=== PATIENT | male | born 1950 | race Caucasian/White ===

== ENCOUNTER 2019-01-08 09:20 | Inpatient (IN) | payer MEDICARE, BC ==
[~2019-01-08] VITALS: Ht 177.8 cm; Wt 95.4 kg
[2019-01-08] MEDS ORDERED: SODIUM CHLORIDE 0.9% 1,000 ML IV SCH (11:00)
[2019-01-08 11:26] LABS: BASOPHILS # (AUTO) 0.03 x10^3/uL (0-0.1); BASOPHILS % (AUTO) 0 % (0-1); EOSINOPHILS # (AUTO) 0.21 x10^3/uL (0-0.4); EOSINOPHILS % (AUTO) 3 % (1-7); LYMPHOCYTES # (AUTO) 1.41 x10^3/uL (1-3.4); LYMPHOCYTES % (AUTO) 17 % (22-44); MD NO; MEAN CORPUSCULAR HEMOGLOBIN 23.6 pg (27.5-34.5); MEAN CORPUSCULAR HGB CONC 31.2 g/dL (33.2-36.2); MEAN CORPUSCULAR VOLUME 75.6 fL (81-97); MEAN PLATELET VOLUME 9.1 fL (7.4-10.4); MONOCYTES # (AUTO) 0.75 x10^3/uL (0.2-0.8); MONOCYTES % (AUTO) 9 % (2-9); NEUTROPHILS # (AUTO) 5.86 x10^3/uL (1.8-6.8); NEUTROPHILS % (AUTO) 71 % (42-75); PLATELET COUNT 275 x10^3/uL (130-400); RED BLOOD COUNT 5.45 x10^6/uL (4.38-5.82); RED CELL DISTRIBUTION WIDTH 19.1 % (9.4-14.8)
[2019-01-08 11:27] VITALS: BP 141/93
[2019-01-08 11:36] LABS: ANION GAP 6 mmol/L (5-15); CALCIUM 8.5 mg/dL (8.5-10.1); CHLORIDE 112 mmol/L (98-107); CREATININE 1.28 mg/dL (0.7-1.3)
[2019-01-08] MEDS ORDERED: PRAS10TA4 PO (11:37)
[2019-01-08] MEDS ORDERED: METO25TA35 PO (11:38)
[2019-01-08] MEDS ORDERED: ASPI-515 PO (11:39)
[2019-01-08] MEDS ORDERED: ALLO300T PO (11:39)
[2019-01-08] MEDS ORDERED: ATOR-2 PO (11:40)
[2019-01-08] MEDS ORDERED: DICL-249 PO (11:41)
[2019-01-08] MEDS ORDERED: RANI150T4 PO (11:42)
[2019-01-08] MEDS ORDERED: TEST200V21 IM (11:43)
[2019-01-08] MEDS ORDERED: LIDOCAINE-MPF 1%, 5ML ONE (13:04)
[2019-01-08] MEDS ORDERED: HEPARIN 1,000 UNITS/ML, 10ML ONE (13:04)
[2019-01-08] MEDS ORDERED: VERAPAMIL 2.5 MG/ML, 2ML ONE (13:04)
[2019-01-08] MEDS ORDERED: FENTANYL PF 100 MCG/2ML ONE (13:04)
[2019-01-08] MEDS ORDERED: MIDAZOLAM 1 MG/ML, 2ML ONE (13:04)
[2019-01-08] MEDS ORDERED: BIVALIRUDIN 250 MG ONE (13:44)
[2019-01-08] MEDS ORDERED: INSULIN LISPRO 100 UNITS/ML, PEN SQ-INSULIN SCH (16:00)
[2019-01-08] MEDS ORDERED: ACETAMINOPHEN 500 MG TABLET PO PRN (16:00)
[2019-01-08 17:35] LABS: BASOPHILS # (AUTO) 0.03 x10^3/uL (0-0.1); BASOPHILS % (AUTO) 0 % (0-1); EOSINOPHILS # (AUTO) 0.29 x10^3/uL (0-0.4); EOSINOPHILS % (AUTO) 4 % (1-7); LYMPHOCYTES # (AUTO) 1.77 x10^3/uL (1-3.4); LYMPHOCYTES % (AUTO) 23 % (22-44); MD NO; MEAN CORPUSCULAR HGB CONC 31.3 g/dL (33.2-36.2); MEAN CORPUSCULAR VOLUME 76.8 fL (81-97); MEAN PLATELET VOLUME 9.5 fL (7.4-10.4); MONOCYTES # (AUTO) 0.65 x10^3/uL (0.2-0.8); MONOCYTES % (AUTO) 9 % (2-9); NEUTROPHILS # (AUTO) 4.83 x10^3/uL (1.8-6.8); NEUTROPHILS % (AUTO) 64 % (42-75); PLATELET COUNT 257 x10^3/uL (130-400); RED BLOOD COUNT 5.19 x10^6/uL (4.38-5.82)
[2019-01-08 17:45] LABS: INTERNATIONAL NORMALIZED RATIO 1.06 (0.93-1.1); PROTHROMBIN TIME 11.1 Seconds (9.6-11.5)
[2019-01-08 17:47] LABS: ALANINE AMINOTRANSFERASE 57 U/L (12-78); ALBUMIN 3.3 g/dL (3.4-5.0); ANION GAP 4 mmol/L (5-15); CHLORIDE 113 mmol/L (98-107); CREATININE 1.19 mg/dL (0.7-1.3)
[2019-01-08 17:49] LABS: ALKALINE PHOSPHATASE 118 U/L (45-117); BILIRUBIN,TOTAL 0.5 mg/dL (0.2-1.0)
[2019-01-08 17:57] LABS: HEMOGLOBIN A1C 6.2 % (4.2-6.3)
[2019-01-08] MEDS: METOPROLOL TARTRATE 25 MG TABLET PO SCH (18:24)
[2019-01-08 20:18] VITALS: BP 143/84
[2019-01-08] MEDS: ATORVASTATIN 80 MG TABLET PO SCH (21:15)
[2019-01-08] MEDS: SODIUM CHLORIDE FLUSH 10ML SYR IVF SCH (21:17)
[2019-01-08] MEDS: DIPHENHYDRAMINE 25 MG CAPSULE PO PRN (22:04)
[2019-01-09 04:34] VITALS: BP 138/85
[2019-01-09] MEDS: ASPIRIN 81 MG TABLET CHEW PO SCH (06:26)
[2019-01-09] MEDS ORDERED: HEPARIN 25,000 UNITS/500ML PMX 500 ML IV PRN (07:30)
[2019-01-09 07:50] VITALS: BP 150/89
[2019-01-09] MEDS ORDERED: HEPARIN GTT MC SCH (08:00)
[2019-01-09] MEDS ORDERED: HEPARIN 5,000 UNITS/ML, 1ML IV ONE (08:30)
[2019-01-09] MEDS ORDERED: ALLOPURINOL 100 MG TABLET PO SCH (09:00)
[2019-01-09] MEDS: HEPARIN 25,000 UNITS/500ML PMX 500 ML IV PRN (09:44)
[2019-01-09] MEDS: SODIUM CHLORIDE FLUSH 10ML SYR IVF SCH ×2 (09:47→23:17)
[2019-01-09] MEDS: METOPROLOL TARTRATE 25 MG TABLET PO SCH ×2 (09:52→16:49)
[2019-01-09 15:00] VITALS: BP 128/86
[2019-01-09] MEDS: HEPARIN 5,000 UNITS/ML, 1ML IV PRN ×2 (16:48→22:55)
[2019-01-09 20:34] VITALS: BP 113/71
[2019-01-09] MEDS: DIPHENHYDRAMINE 25 MG CAPSULE PO PRN (20:47)
[2019-01-09] MEDS: ATORVASTATIN 80 MG TABLET PO SCH (20:47)
[2019-01-09] MEDS: FAMOTIDINE 20 MG TABLET PO SCH (20:47)
[2019-01-10 02:43] VITALS: BP 123/79
[2019-01-10] MEDS: ASPIRIN 81 MG TABLET CHEW PO SCH (06:24)
[2019-01-10] MEDS: METOPROLOL TARTRATE 25 MG TABLET PO SCH ×2 (06:33→17:49)
[2019-01-10 07:48] VITALS: BP 129/78
[2019-01-10] MEDS: SODIUM CHLORIDE FLUSH 10ML SYR IVF SCH ×2 (08:25→21:17)
[2019-01-10] MEDS: FAMOTIDINE 20 MG TABLET PO SCH ×2 (08:26→21:16)
[2019-01-10] MEDS: ALLOPURINOL 100 MG TABLET PO SCH (08:27)
[2019-01-10] MEDS: HEPARIN 25,000 UNITS/500ML PMX 500 ML IV PRN (08:31)
[2019-01-10] MEDS ORDERED: FAMOTIDINE 20 MG TABLET PO SCH (09:00)
[2019-01-10] MEDS: HEPARIN 5,000 UNITS/ML, 1ML IV PRN (12:39)
[2019-01-10 14:00] VITALS: BP 143/76
[2019-01-10 21:13] VITALS: BP 114/72
[2019-01-10] MEDS: ATORVASTATIN 80 MG TABLET PO SCH (21:16)
[2019-01-10] MEDS: DIPHENHYDRAMINE 25 MG CAPSULE PO PRN (21:21)
[2019-01-11] MEDS: HEPARIN 25,000 UNITS/500ML PMX 500 ML IV PRN ×2 (01:39→18:45)
[2019-01-11] MEDS: HEPARIN 5,000 UNITS/ML, 1ML IV PRN (01:41)
[2019-01-11 02:00] VITALS: BP 124/79
[2019-01-11] MEDS: ASPIRIN 81 MG TABLET CHEW PO SCH (05:55)
[2019-01-11] MEDS: METOPROLOL TARTRATE 25 MG TABLET PO SCH ×2 (05:55→16:57)
[2019-01-11] MEDS: ALLOPURINOL 100 MG TABLET PO SCH (07:22)
[2019-01-11] MEDS: FAMOTIDINE 20 MG TABLET PO SCH ×2 (07:22→19:51)
[2019-01-11] MEDS: SODIUM CHLORIDE FLUSH 10ML SYR IVF SCH ×2 (07:22→19:52)
[2019-01-11 09:05] VITALS: BP 121/80
[2019-01-11 13:38] VITALS: BP 143/76
[2019-01-11 18:34] VITALS: BP 125/78
[2019-01-11] MEDS: ATORVASTATIN 80 MG TABLET PO SCH (19:51)
[2019-01-11] MEDS: DIPHENHYDRAMINE 25 MG CAPSULE PO PRN (21:06)
[2019-01-12 03:40] VITALS: BP 135/85
[2019-01-12] MEDS: METOPROLOL TARTRATE 25 MG TABLET PO SCH ×2 (05:06→17:12)
[2019-01-12] MEDS: ASPIRIN 81 MG TABLET CHEW PO SCH (05:07)
[2019-01-12 06:50] VITALS: BP 127/85
[2019-01-12] MEDS: FAMOTIDINE 20 MG TABLET PO SCH ×2 (09:12→20:04)
[2019-01-12] MEDS: ALLOPURINOL 100 MG TABLET PO SCH (09:13)
[2019-01-12] MEDS: SODIUM CHLORIDE FLUSH 10ML SYR IVF SCH ×2 (09:13→20:05)
[2019-01-12] MEDS: HEPARIN 25,000 UNITS/500ML PMX 500 ML IV PRN (12:11)
[2019-01-12 13:50] VITALS: BP 126/80
[2019-01-12 18:40] VITALS: BP 116/75
[2019-01-12] MEDS: ATORVASTATIN 80 MG TABLET PO SCH (20:04)
[2019-01-12] MEDS: DIPHENHYDRAMINE 25 MG CAPSULE PO PRN (21:09)
[2019-01-13 03:20] VITALS: BP 119/74
[2019-01-13] MEDS: HEPARIN 25,000 UNITS/500ML PMX 500 ML IV PRN ×2 (05:04→19:50)
[2019-01-13] MEDS: ASPIRIN 81 MG TABLET CHEW PO SCH (05:36)
[2019-01-13] MEDS: METOPROLOL TARTRATE 25 MG TABLET PO SCH ×2 (05:36→17:26)
[2019-01-13 07:35] VITALS: BP 125/90
[2019-01-13] MEDS: ALLOPURINOL 100 MG TABLET PO SCH (08:00)
[2019-01-13] MEDS: FAMOTIDINE 20 MG TABLET PO SCH ×2 (08:00→20:31)
[2019-01-13] MEDS: SODIUM CHLORIDE FLUSH 10ML SYR IVF SCH ×2 (08:01→20:31)
[2019-01-13 14:10] VITALS: BP 123/82
[2019-01-13 14:30] LABS: % IRON SATURATION 7 % (20-55); IRON LEVEL 27 mcg/dL (65-175); TOTAL IRON BINDING CAPACITY 395 mcg/dL (250-450)
[2019-01-13 19:26] VITALS: BP 121/78
[2019-01-13] MEDS: DIPHENHYDRAMINE 25 MG CAPSULE PO PRN (20:30)
[2019-01-13] MEDS: ATORVASTATIN 80 MG TABLET PO SCH (20:30)
[2019-01-14 05:30] VITALS: BP 124/80
[2019-01-14] MEDS: METOPROLOL TARTRATE 25 MG TABLET PO SCH ×2 (05:40→17:19)
[2019-01-14] MEDS: ASPIRIN 81 MG TABLET CHEW PO SCH (05:40)
[2019-01-14 07:43] VITALS: BP 124/87
[2019-01-14] MEDS: ALLOPURINOL 100 MG TABLET PO SCH (07:56)
[2019-01-14] MEDS: FAMOTIDINE 20 MG TABLET PO SCH ×2 (07:56→21:14)
[2019-01-14] MEDS: SODIUM CHLORIDE FLUSH 10ML SYR IVF SCH ×3 (07:57→21:14)
[2019-01-14 09:47] LABS: MICROSCOPIC NOT IND
[2019-01-14] MEDS: HEPARIN 25,000 UNITS/500ML PMX 500 ML IV PRN (11:13)
[2019-01-14] MEDS ORDERED: CHLORHEXIDINE 15 ML UDC MM PRN (13:00)
[2019-01-14] MEDS ORDERED: INSULIN LISPRO 100 UNITS/ML, PEN SQ-INSULIN SCH (13:00)
[2019-01-14 13:35] LABS: BASOPHILS # (AUTO) 0.03 x10^3/uL (0-0.1); BASOPHILS % (AUTO) 0 % (0-1); EOSINOPHILS # (AUTO) 0.47 x10^3/uL (0-0.4); EOSINOPHILS % (AUTO) 5 % (1-7); LYMPHOCYTES # (AUTO) 1.65 x10^3/uL (1-3.4); LYMPHOCYTES % (AUTO) 18 % (22-44); MD NO; MEAN CORPUSCULAR HGB CONC 31.1 g/dL (33.2-36.2); MEAN PLATELET VOLUME 9.6 fL (7.4-10.4); MONOCYTES # (AUTO) 0.88 x10^3/uL (0.2-0.8); MONOCYTES % (AUTO) 10 % (2-9); NEUTROPHILS # (AUTO) 6.12 x10^3/uL (1.8-6.8); NEUTROPHILS % (AUTO) 67 % (42-75); PLATELET COUNT 261 x10^3/uL (130-400); RED BLOOD COUNT 5.31 x10^6/uL (4.38-5.82); RED CELL DISTRIBUTION WIDTH 19.2 % (9.4-14.8)
[2019-01-14 13:44] LABS: INTERNATIONAL NORMALIZED RATIO 1.02 (0.93-1.1); PROTHROMBIN TIME 10.7 Seconds (9.6-11.5)
[2019-01-14 13:47] LABS: ALANINE AMINOTRANSFERASE 127 U/L (12-78); ALBUMIN 3.6 g/dL (3.4-5.0); ANION GAP 7 mmol/L (5-15); CALCIUM 8.2 mg/dL (8.5-10.1); CHLORIDE 110 mmol/L (98-107); CREATININE 1.22 mg/dL (0.7-1.3)
[2019-01-14 13:49] LABS: ALKALINE PHOSPHATASE 122 U/L (45-117); BILIRUBIN,TOTAL 0.4 mg/dL (0.2-1.0); TOTAL PROTEIN 6.5 g/dL (6.4-8.2)
[2019-01-14 14:42] VITALS: BP 152/91
[2019-01-14 14:43] LABS: HEMOGLOBIN A1C 6.2 % (4.2-6.3)
[2019-01-14 20:00] VITALS: BP 146/87
[2019-01-14] MEDS: ATORVASTATIN 80 MG TABLET PO SCH (21:14)
[2019-01-14] MEDS: MUPIROCIN OINT 2%, 22GM TP SCH (21:46)
[2019-01-14] MEDS: CHLORHEXIDINE 15 ML UDC MM PRN (21:46)
[2019-01-15 02:00] VITALS: BP 131/78
[2019-01-15] MEDS ORDERED: METOPROLOL TARTRATE 25 MG TABLET PO ONE (05:00)
[2019-01-15] MEDS: CHLORHEXIDINE 15 ML UDC MM PRN (05:20)
[2019-01-15 05:23] VITALS: BP_SYST 137; BP_SYST 138; BP_DIAS 81; BP_DIAS 83
[2019-01-15] MEDS: METOPROLOL TARTRATE 25 MG TABLET PO SCH (05:54)
[2019-01-15] MEDS ORDERED: PAPAVERINE 30 MG/ML, 2ML ONE (06:33)
[2019-01-15] MEDS ORDERED: HEPARIN 1,000 UNITS/ML, 10ML ONE (06:33)
[2019-01-15] MEDS ORDERED: AMINOCAPROIC ACID 250 MG/ML, 20ML ONE ×2 (06:41)
[2019-01-15] MEDS ORDERED: PROPOFOL 10 MG/ML, 20ML ONE (06:41)
[2019-01-15] MEDS ORDERED: PHENYLEPHRINE 10 MG/ML ONE (06:41)
[2019-01-15] MEDS ORDERED: ROCURONIUM 10MG/ML,5ML ONE ×3 (06:41→08:38)
[2019-01-15] MEDS ORDERED: EPINEPHRINE 1 MG/ML, 1ML ONE ×2 (06:41)
[2019-01-15] MEDS ORDERED: FENTANYL PF 250 MCG/5ML ONE ×4 (06:42)
[2019-01-15] MEDS ORDERED: MIDAZOLAM 10MG/2 ML ONE (06:42)
[2019-01-15 06:45] VITALS: BP 128/81
[2019-01-15] MEDS ORDERED: VANCOMYCIN 1,500 MG in SODIUM CHLORIDE 0.9% 250 ML IV PRN (07:30)
[2019-01-15] MEDS ORDERED: DEXMEDETOMIDINE 200 MCG in SODIUM CHLORIDE 0.9% 48 ML IV SCH (07:30)
[2019-01-15] MEDS ORDERED: REGULAR INSULIN 62.5 UNITS in SODIUM CHLORIDE 0.9% 249.375 ML IV PRN ×2 (07:30→11:54)
[2019-01-15] MEDS ORDERED: POTASSIUM CHLORIDE 80 MEQ, SODIUM BICARBONATE 8.4% 10 MEQ, MAGNESIUM SULFATE 0.5 GM, LI... IV PRN (07:30)
[2019-01-15] MEDS ORDERED: MANNITOL PMX 20% 500 ML IVPB PRN (07:30)
[2019-01-15] MEDS ORDERED: VANCOMYCIN 1,400 MG in SODIUM CHLORIDE 0.9% 250 ML IVPB PRN (07:30)
[2019-01-15] MEDS ORDERED: ALBUMIN HUMAN 5% 500 ML IV PRN (07:30)
[2019-01-15] MEDS ORDERED: EPINEPHRINE 2 MG in SODIUM CHLORIDE 0.9% 248 ML IV SCH (07:30)
[2019-01-15] MEDS ORDERED: CEFUROXIME 1.5 GM in SODIUM CHLORIDE 0.9% 50 ML IVPB PRN (07:30)
[2019-01-15] MEDS ORDERED: PHENYLEPHRINE 10 MG in SODIUM CHLORIDE 0.9% 249 ML IV PRN ×2 (07:30→11:54)
[2019-01-15] MEDS ORDERED: DOCUSATE 100 MG CAPSULE PO SCH (09:00)
[2019-01-15] MEDS: SODIUM CHLORIDE FLUSH 10ML SYR IVF SCH ×3 (09:00→20:25)
[2019-01-15] MEDS: FAMOTIDINE 20 MG TABLET PO SCH ×2 (09:00→20:24)
[2019-01-15] MEDS: MUPIROCIN OINT 2%, 22GM TP SCH ×2 (09:00→21:30)
[2019-01-15] MEDS: ALLOPURINOL 100 MG TABLET PO SCH (09:00)
[2019-01-15] MEDS: ASPIRIN 81 MG TABLET CHEW PO SCH (09:00)
[2019-01-15] MEDS ORDERED: PROTAMINE SULFATE 10 MG/ML, 25ML ONE ×2 (09:59)
[2019-01-15] MEDS ORDERED: CALCIUM CHLORIDE 10%, 10ML SYR ONE (09:59)
[2019-01-15] MEDS ORDERED: DOBUTAMINE 250 MG in SODIUM CHLORIDE 0.9% 230 ML IV PRN (11:54)
[2019-01-15] MEDS ORDERED: VASOPRESSIN 50 UNIT in SODIUM CHLORIDE 0.9% 247.5 ML IV PRN (11:54)
[2019-01-15] MEDS ORDERED: NITROGLYCERIN/D5W PMX 250 ML IV PRN (11:54)
[2019-01-15] MEDS ORDERED: DEXMEDETOMIDINE 200 MCG in SODIUM CHLORIDE 0.9% 48 ML IV PRN (11:54)
[2019-01-15] MEDS ORDERED: SODIUM CHLORIDE 0.9% 1,000 ML IV PRN (11:54)
[2019-01-15] MEDS ORDERED: BISACODYL 10 MG SUPP PR PRN (12:00)
[2019-01-15] MEDS ORDERED: GLUCAGON 1 MG IM PRN (12:00)
[2019-01-15] MEDS ORDERED: LACTATED RINGERS 1,000 ML IV PRN (12:00)
[2019-01-15] MEDS ORDERED: SODIUM BICARB 8.4%, 50ML SYRINGE IV PRN (12:00)
[2019-01-15] MEDS ORDERED: EPINEPHRINE 2 MG in SODIUM CHLORIDE 0.9% 248 ML IV PRN (12:00)
[2019-01-15] MEDS ORDERED: BISACODYL 5 MG EC TABLET PO PRN (12:00)
[2019-01-15] MEDS ORDERED: ONDANSETRON 2MG/ML, 2ML IVPush PRN (12:00)
[2019-01-15] MEDS ORDERED: HYDROcodone/APAP 5/325 TABLET PO PRN (12:00)
[2019-01-15] MEDS ORDERED: DEXTROSE 4 GM TAB.CHEW PO PRN (12:00)
[2019-01-15] MEDS ORDERED: PROCHLORPERAZINE 5 MG/ML, 2ML IVPush PRN (12:00)
[2019-01-15] MEDS: KSCALE TO 4.5 IV SCH ×2 (12:00→18:00)
[2019-01-15] MEDS ORDERED: MIDAZOLAM 1 MG/ML, 5ML IVPush PRN (12:00)
[2019-01-15] MEDS ORDERED: ACETAMINOPHEN 650 MG SUPP PR PRN (12:00)
[2019-01-15] MEDS ORDERED: DEXTROSE 50%, 50ML SYRINGE IVPush PRN (12:00)
[2019-01-15] MEDS ORDERED: ACETAMINOPHEN 325 MG TABLET PO PRN (12:00)
[2019-01-15] MEDS ORDERED: INSULIN REGULAR 100 UNITS/ML, 3ML VIAL IVPush PRN (12:00)
[2019-01-15] MEDS ORDERED: ALBUMIN HUMAN 25% 50 ML ONE (12:09)
[2019-01-15] MEDS ORDERED: methylPREDNISolone SOD SUCC 125 MG/2 ML ONE (12:09)
[2019-01-15] MEDS ORDERED: SODIUM BICARBONATE 1 MEQ/ML, 50ML VIAL ONE (12:09)
[2019-01-15] MEDS ORDERED: HEPARIN 1,000 UNITS/ML, 30ML ONE (12:09)
[2019-01-15 12:26] LABS: GLUCOSE BY BLOOD GAS ANALYZER 160 mg/dL (70-110); HEMOGLOBIN BY BLOOD GAS ANALYZ 11.2 g/dL (14.0-18.0); POTASSIUM BY BLOOD GAS ANALYZR 4.6 mmol/L (3.6-5.5)
[2019-01-15] MEDS: MAGNESIUM SULFATE 1 GM in SODIUM CHLORIDE 0.9% 50 ML IVPB SCH (12:54)
[2019-01-15] MEDS: morphine SULFATE 10 MG/ML, 1ML IVPush PRN ×4 (14:59→20:14)
[2019-01-15] MEDS: OXYcodone IR 5MG TABLET PO PRN ×3 (15:57→23:40)
[2019-01-15] MEDS: INSULIN LISPRO 100 UNITS/ML, PEN SQ-INSULIN SCH ×2 (16:00→20:25)
[2019-01-15] MEDS ORDERED: ACETAMINOPHEN 500 MG TABLET PO PRN (19:30)
[2019-01-15] MEDS: CEFUROXIME 1.5 GM in SODIUM CHLORIDE 0.9% 50 ML IVPB SCH (19:30)
[2019-01-15] MEDS: VANCOMYCIN 1,400 MG in SODIUM CHLORIDE 0.9% 250 ML IVPB SCH (20:25)
[2019-01-15] MEDS: ATORVASTATIN 80 MG TABLET PO SCH (20:25)
[2019-01-15] MEDS ORDERED: SODIUM CHLORIDE FLUSH 10ML SYR IVF SCH (21:00)
[2019-01-15] MEDS: GABAPENTIN 300 MG CAPSULE PO SCH (21:30)
[2019-01-15] MEDS: ONDANSETRON 2MG/ML, 2ML IVPush PRN (21:45)
[2019-01-15] MEDS ORDERED: HYDROmorphone 1 MG/ML, 1ML INJ IV PRN (22:00)
[2019-01-15] MEDS ORDERED: HYDROmorphone 2 MG/ML, 1ML ONE (22:17)
[2019-01-16] MEDS: OXYcodone IR 5MG TABLET PO PRN (04:16)
[2019-01-16 05:55] LABS: INTERNATIONAL NORMALIZED RATIO 1.04 (0.93-1.1); PROTHROMBIN TIME 10.9 Seconds (9.6-11.5)
[2019-01-16 05:57] LABS: ALBUMIN 3.4 g/dL (3.4-5.0); ANION GAP 5 mmol/L (5-15); CALCIUM 8.1 mg/dL (8.5-10.1); CHLORIDE 115 mmol/L (98-107); CREATININE 1.16 mg/dL (0.7-1.3)
[2019-01-16] MEDS: KSCALE TO 4.5 IV SCH ×2 (06:00)
[2019-01-16 06:07] LABS: MEAN CORPUSCULAR HEMOGLOBIN 24.5 pg (27.5-34.5); MEAN CORPUSCULAR VOLUME 76.8 fL (81-97); MEAN PLATELET VOLUME 9.8 fL (7.4-10.4); PLATELET COUNT 186 x10^3/uL (130-400); RED BLOOD COUNT 4.14 x10^6/uL (4.38-5.82); RED CELL DISTRIBUTION WIDTH 19.4 % (9.4-14.8)
[2019-01-16] MEDS: ONDANSETRON 2MG/ML, 2ML IVPush PRN ×2 (06:31→16:22)
[2019-01-16 06:35] LABS: MD YES
[2019-01-16 06:37] LABS: BAND#(MANUAL) 1.53 x10^3/uL; BANDS%(MANUAL) 7 % (0-7); MONOS#(MANUAL) 2.85 x10^3/uL (0.3-2.7); MONOS% (MANUAL) 13 % (2-9); SEG#(MANUAL) 17.52 x10^3/uL (1.8-6.8); SEGS% (MANUAL) 80 % (42-75)
[2019-01-16 06:43] LABS: ANISOCYTOSIS 1+; HYPOCHROMIA 1+; MICROCYTOSIS 1+; OVALOCYTES 1+
[2019-01-16 06:44] LABS: <PLATELET ESTIMATE> ADEQUATE; <PLT MORPHOLOGY> NORMAL PLT MORPH
[2019-01-16] MEDS: INSULIN LISPRO 100 UNITS/ML, PEN SQ-INSULIN SCH ×4 (07:00→20:42)
[2019-01-16] MEDS: CEFUROXIME 1.5 GM in SODIUM CHLORIDE 0.9% 50 ML IVPB SCH (08:18)
[2019-01-16] MEDS: VANCOMYCIN 1,400 MG in SODIUM CHLORIDE 0.9% 250 ML IVPB SCH (08:18)
[2019-01-16] MEDS: GABAPENTIN 300 MG CAPSULE PO SCH ×2 (08:19→20:33)
[2019-01-16] MEDS: FAMOTIDINE 20 MG TABLET PO SCH ×2 (08:19→20:33)
[2019-01-16] MEDS: ALLOPURINOL 100 MG TABLET PO SCH (08:19)
[2019-01-16] MEDS: MUPIROCIN OINT 2%, 22GM NAS SCH ×2 (08:19→20:33)
[2019-01-16] MEDS: SODIUM CHLORIDE FLUSH 10ML SYR IVF SCH ×3 (08:19→20:31)
[2019-01-16] MEDS: ASPIRIN 81 MG TABLET CHEW PO SCH (08:20)
[2019-01-16] MEDS ORDERED: ASPIRIN 81 MG TABLET EC PO SCH (09:00)
[2019-01-16] MEDS: MUPIROCIN OINT 2%, 22GM TP SCH ×2 (09:00→20:36)
[2019-01-16] MEDS: ACETAMINOPHEN 325 MG TABLET PO PRN ×2 (09:25→15:17)
[2019-01-16] MEDS ORDERED: MAGNESIUM HYDROXIDE 8%, 30ML UDC PO PRN (09:30)
[2019-01-16] MEDS: METOPROLOL TARTRATE 25 MG TABLET PO/NG SCH ×2 (09:30→20:36)
[2019-01-16] MEDS: FUROSEMIDE 20 MG/2 ML IV SCH ×2 (12:27→17:27)
[2019-01-16] MEDS: MAGNESIUM SULFATE 1 GM in SODIUM CHLORIDE 0.9% 50 ML IVPB SCH (12:27)
[2019-01-16] MEDS: HYDROcodone/APAP 5/325 TABLET PO PRN ×2 (16:22→20:34)
[2019-01-16] MEDS: FERROUS SULFATE 325 MG TABLET PO SCH (17:27)
[2019-01-16 18:30] VITALS: BP 101/65
[2019-01-16] MEDS: CHLORHEXIDINE 15 ML UDC MM SCH (20:32)
[2019-01-16] MEDS: ATORVASTATIN 80 MG TABLET PO SCH (20:33)
[2019-01-16] MEDS ORDERED: FILTER 0.22 MICRON IV PRN (23:45)
[2019-01-17] VITALS (7 sets, daily range): BP systolic 109–148; BP diastolic 69–82
[2019-01-17] MEDS ORDERED: AMIODARONE 900 MG in DEXTROSE 5% 482 ML IV PRN
[2019-01-17] MEDS: OXYcodone IR 5MG TABLET PO PRN ×8 (00:14→20:46)
[2019-01-17] MEDS ORDERED: MAGNESIUM SULFATE 1 GM in SODIUM CHLORIDE 0.9% 50 ML IV ONE (01:30)
[2019-01-17 02:05] LABS: MEAN CORPUSCULAR HEMOGLOBIN 24.4 pg (27.5-34.5); MEAN CORPUSCULAR HGB CONC 31.2 g/dL (33.2-36.2); MEAN PLATELET VOLUME 10.3 fL (7.4-10.4); PLATELET COUNT 166 x10^3/uL (130-400); RED BLOOD COUNT 3.97 x10^6/uL (4.38-5.82); RED CELL DISTRIBUTION WIDTH 19.5 % (9.4-14.8)
[2019-01-17 02:07] LABS: INTERNATIONAL NORMALIZED RATIO 1.02 (0.93-1.1); PROTHROMBIN TIME 10.7 Seconds (9.6-11.5)
[2019-01-17 02:10] LABS: ANION GAP 6 mmol/L (5-15); CALCIUM 8.2 mg/dL (8.5-10.1); CHLORIDE 109 mmol/L (98-107); CREATININE 1.46 mg/dL (0.7-1.3)
[2019-01-17 02:54] LABS: BASOPHILS % (AUTO) 0 % (0-1); EOSINOPHILS % (AUTO) 0 % (1-7); LYMPHOCYTES # (AUTO) 0.86 x10^3/uL (1-3.4); LYMPHOCYTES % (AUTO) 4 % (22-44); MD SCAN; MONOCYTES # (AUTO) 1.47 x10^3/uL (0.2-0.8); MONOCYTES % (AUTO) 7 % (2-9); NEUTROPHILS # (AUTO) 17.62 x10^3/uL (1.8-6.8); NEUTROPHILS % (AUTO) 88 % (42-75)
[2019-01-17] MEDS: ASPIRIN 81 MG TABLET CHEW PO SCH (05:35)
[2019-01-17] MEDS: FUROSEMIDE 20 MG/2 ML IV SCH ×2 (06:26→17:28)
[2019-01-17] MEDS ORDERED: METOPROLOL TARTRATE 25 MG TABLET PO/NG SCH (09:00)
[2019-01-17] MEDS: GABAPENTIN 300 MG CAPSULE PO SCH ×2 (09:35→20:45)
[2019-01-17] MEDS: FAMOTIDINE 20 MG TABLET PO SCH ×2 (09:35→20:44)
[2019-01-17] MEDS: FERROUS SULFATE 325 MG TABLET PO SCH ×2 (09:36→17:28)
[2019-01-17] MEDS: ALLOPURINOL 100 MG TABLET PO SCH (09:37)
[2019-01-17] MEDS: MUPIROCIN OINT 2%, 22GM NAS SCH ×2 (09:40→20:45)
[2019-01-17] MEDS: CHLORHEXIDINE 15 ML UDC MM SCH ×2 (09:40→20:44)
[2019-01-17] MEDS: SODIUM CHLORIDE FLUSH 10ML SYR IVF SCH ×2 (09:47→20:46)
[2019-01-17] MEDS: INSULIN LISPRO 100 UNITS/ML, PEN SQ-INSULIN SCH ×4 (09:49→20:46)
[2019-01-17] MEDS: CARVEDILOL 6.25 MG TABLET PO SCH ×2 (09:51→17:28)
[2019-01-17] MEDS: AMIODARONE 200 MG TABLET PO SCH ×2 (09:52→20:45)
[2019-01-17] MEDS: MUPIROCIN OINT 2%, 22GM TP SCH ×2 (09:55→20:46)
[2019-01-17] MEDS: MAGNESIUM SULFATE 1 GM in SODIUM CHLORIDE 0.9% 50 ML IVPB SCH (12:51)
[2019-01-17] MEDS: ENOXAPARIN 40 MG/0.4 ML SQ SCH (12:54)
[2019-01-17] MEDS: DOCUSATE 100 MG CAPSULE PO SCH ×2 (12:54→20:46)
[2019-01-17] MEDS ORDERED: FILTER 0.22 MICRON FOR AMIODARONE IV PRN (17:00)
[2019-01-17] MEDS ORDERED: AMIODARONE 150 MG in DEXTROSE 5% 100 ML IV ONE ×2 (17:00)
[2019-01-17] MEDS: ATORVASTATIN 80 MG TABLET PO SCH (20:44)
[2019-01-18 00:06] VITALS: BP 120/72
[2019-01-18] MEDS: OXYcodone IR 5MG TABLET PO PRN ×2 (00:07→03:28)
[2019-01-18 05:43] VITALS: BP 118/78
[2019-01-18] MEDS: ASPIRIN 81 MG TABLET CHEW PO SCH (05:44)
[2019-01-18] MEDS: CARVEDILOL 6.25 MG TABLET PO SCH ×2 (05:44→17:22)
[2019-01-18 06:27] LABS: BASOPHILS # (AUTO) 0.01 x10^3/uL (0-0.1); BASOPHILS % (AUTO) 0 % (0-1); EOSINOPHILS # (AUTO) 0.02 x10^3/uL (0-0.4); EOSINOPHILS % (AUTO) 0 % (1-7); LYMPHOCYTES # (AUTO) 0.98 x10^3/uL (1-3.4); LYMPHOCYTES % (AUTO) 6 % (22-44); MD NO; MEAN CORPUSCULAR HEMOGLOBIN 24.5 pg (27.5-34.5); MEAN CORPUSCULAR HGB CONC 31.5 g/dL (33.2-36.2); MEAN PLATELET VOLUME 9.7 fL (7.4-10.4); MONOCYTES # (AUTO) 1.38 x10^3/uL (0.2-0.8); MONOCYTES % (AUTO) 9 % (2-9); NEUTROPHILS # (AUTO) 13.01 x10^3/uL (1.8-6.8); NEUTROPHILS % (AUTO) 85 % (42-75); PLATELET COUNT 162 x10^3/uL (130-400); RED BLOOD COUNT 4.05 x10^6/uL (4.38-5.82); RED CELL DISTRIBUTION WIDTH 18.9 % (9.4-14.8)
[2019-01-18 06:34] VITALS: BP 114/74
[2019-01-18 06:34] LABS: CHLORIDE 103 mmol/L (98-107)
[2019-01-18 06:38] LABS: ANION GAP 6 mmol/L (5-15); CALCIUM 8.3 mg/dL (8.5-10.1); CREATININE 1.16 mg/dL (0.7-1.3)
[2019-01-18] MEDS: INSULIN LISPRO 100 UNITS/ML, PEN SQ-INSULIN SCH ×2 (07:08→12:01)
[2019-01-18] MEDS: FAMOTIDINE 20 MG TABLET PO SCH ×2 (08:17→21:27)
[2019-01-18] MEDS: GABAPENTIN 300 MG CAPSULE PO SCH ×2 (08:17→21:27)
[2019-01-18] MEDS: CLOPIDOGREL 75 MG TABLET PO SCH (08:17)
[2019-01-18] MEDS: FERROUS SULFATE 325 MG TABLET PO SCH ×2 (08:17→17:22)
[2019-01-18] MEDS: ALLOPURINOL 100 MG TABLET PO SCH (08:17)
[2019-01-18] MEDS: DOCUSATE 100 MG CAPSULE PO SCH ×2 (08:17→21:26)
[2019-01-18] MEDS: CHLORHEXIDINE 15 ML UDC MM SCH (08:18)
[2019-01-18] MEDS: SODIUM CHLORIDE FLUSH 10ML SYR IVF SCH ×2 (08:18→21:27)
[2019-01-18] MEDS: AMIODARONE 200 MG TABLET PO SCH ×2 (08:18→21:27)
[2019-01-18] MEDS: FUROSEMIDE 20 MG/2 ML IV SCH ×2 (08:19→17:22)
[2019-01-18] MEDS: MUPIROCIN OINT 2%, 22GM NAS SCH ×2 (08:19→21:27)
[2019-01-18] MEDS: MUPIROCIN OINT 2%, 22GM TP SCH ×2 (08:19→21:00)
[2019-01-18] MEDS ORDERED: LISINOPRIL 5 MG TABLET PO SCH (12:30)
[2019-01-18 13:12] VITALS: BP 106/73
[2019-01-18] MEDS: ONDANSETRON 2MG/ML, 2ML IVPush PRN (13:16)
[2019-01-18] MEDS: ENOXAPARIN 40 MG/0.4 ML SQ SCH (15:23)
[2019-01-18 19:29] VITALS: BP 119/77
[2019-01-18] MEDS: ATORVASTATIN 80 MG TABLET PO SCH (21:27)
[2019-01-19 01:43] VITALS: BP 125/70
[2019-01-19 04:58] LABS: MEAN CORPUSCULAR HEMOGLOBIN 24.7 pg (27.5-34.5); MEAN CORPUSCULAR HGB CONC 31.8 g/dL (33.2-36.2); MEAN CORPUSCULAR VOLUME 77.9 fL (81-97); MEAN PLATELET VOLUME 10.2 fL (7.4-10.4); PLATELET COUNT 174 x10^3/uL (130-400); RED BLOOD COUNT 3.72 x10^6/uL (4.38-5.82)
[2019-01-19 05:09] LABS: ANION GAP 6 mmol/L (5-15); CALCIUM 7.9 mg/dL (8.5-10.1); CHLORIDE 103 mmol/L (98-107)
[2019-01-19 05:40] LABS: BASOPHILS # (AUTO) 0.01 x10^3/uL (0-0.1); BASOPHILS % (AUTO) 0 % (0-1); EOSINOPHILS # (AUTO) 0.12 x10^3/uL (0-0.4); EOSINOPHILS % (AUTO) 1 % (1-7); LYMPHOCYTES # (AUTO) 1.12 x10^3/uL (1-3.4); LYMPHOCYTES % (AUTO) 9 % (22-44); MD SCAN; MONOCYTES # (AUTO) 1.49 x10^3/uL (0.2-0.8); MONOCYTES % (AUTO) 12 % (2-9); NEUTROPHILS # (AUTO) 9.56 x10^3/uL (1.8-6.8); NEUTROPHILS % (AUTO) 78 % (42-75)
[2019-01-19 06:08] VITALS: BP 118/72
[2019-01-19] MEDS: CARVEDILOL 6.25 MG TABLET PO SCH ×2 (06:11→17:48)
[2019-01-19] MEDS: ASPIRIN 81 MG TABLET CHEW PO SCH (06:11)
[2019-01-19 07:00] VITALS: BP 110/68
[2019-01-19] MEDS: MUPIROCIN OINT 2%, 22GM TP SCH ×2 (09:00→21:27)
[2019-01-19] MEDS: FERROUS SULFATE 325 MG TABLET PO SCH ×2 (09:02→17:48)
[2019-01-19] MEDS: GABAPENTIN 300 MG CAPSULE PO SCH ×2 (09:02→21:26)
[2019-01-19] MEDS: CLOPIDOGREL 75 MG TABLET PO SCH (09:02)
[2019-01-19] MEDS: DOCUSATE 100 MG CAPSULE PO SCH ×2 (09:02→21:25)
[2019-01-19] MEDS: ALLOPURINOL 100 MG TABLET PO SCH (09:03)
[2019-01-19] MEDS: FUROSEMIDE 20 MG/2 ML IV SCH ×2 (09:03→17:48)
[2019-01-19] MEDS: LISINOPRIL 5 MG TABLET PO SCH (09:03)
[2019-01-19] MEDS: FAMOTIDINE 20 MG TABLET PO SCH ×2 (09:03→21:25)
[2019-01-19] MEDS: AMIODARONE 200 MG TABLET PO SCH ×2 (09:04→21:26)
[2019-01-19] MEDS: SODIUM CHLORIDE FLUSH 10ML SYR IVF SCH ×2 (09:05→21:25)
[2019-01-19] MEDS: MUPIROCIN OINT 2%, 22GM NAS SCH ×2 (09:05→21:26)
[2019-01-19 12:15] VITALS: BP 118/75
[2019-01-19] MEDS ORDERED: GLYCERIN ADULT SUPP PR ONE (14:00)
[2019-01-19] MEDS: ENOXAPARIN 40 MG/0.4 ML SQ SCH (17:48)
[2019-01-19 18:59] VITALS: BP 107/67
[2019-01-19 21:19] VITALS: BP 99/59
[2019-01-19] MEDS: ATORVASTATIN 80 MG TABLET PO SCH (21:25)
[2019-01-20 01:20] VITALS: BP 110/69
[2019-01-20 04:50] LABS: BASOPHILS # (AUTO) 0.05 x10^3/uL (0-0.1); BASOPHILS % (AUTO) 1 % (0-1); EOSINOPHILS % (AUTO) 3 % (1-7); LYMPHOCYTES # (AUTO) 1.48 x10^3/uL (1-3.4); LYMPHOCYTES % (AUTO) 13 % (22-44); MD NO; MEAN CORPUSCULAR HEMOGLOBIN 24.7 pg (27.5-34.5); MEAN CORPUSCULAR VOLUME 76.9 fL (81-97); MEAN PLATELET VOLUME 9.7 fL (7.4-10.4); MONOCYTES # (AUTO) 1.42 x10^3/uL (0.2-0.8); MONOCYTES % (AUTO) 13 % (2-9); NEUTROPHILS # (AUTO) 7.94 x10^3/uL (1.8-6.8); NEUTROPHILS % (AUTO) 71 % (42-75); PLATELET COUNT 219 x10^3/uL (130-400); RED BLOOD COUNT 3.78 x10^6/uL (4.38-5.82); RED CELL DISTRIBUTION WIDTH 18.8 % (9.4-14.8)
[2019-01-20 05:04] LABS: ANION GAP 5 mmol/L (5-15); CALCIUM 7.8 mg/dL (8.5-10.1); CHLORIDE 104 mmol/L (98-107); CREATININE 1.32 mg/dL (0.7-1.3)
[2019-01-20 05:46] LABS: OCCULT BLOOD NEGATIVE (NEGATIVE)
[2019-01-20 05:52] VITALS: BP 98/67
[2019-01-20] MEDS: CARVEDILOL 6.25 MG TABLET PO SCH (05:53)
[2019-01-20] MEDS: ASPIRIN 81 MG TABLET CHEW PO SCH (05:53)
[2019-01-20 07:51] VITALS: BP 113/72
[2019-01-20] MEDS ORDERED: LISI5TAB7 PO (08:02)
[2019-01-20] MEDS ORDERED: AMIO200T42 PO ×3 (08:02→08:03)
[2019-01-20] MEDS ORDERED: CLOP75TA PO (08:02)
[2019-01-20] MEDS ORDERED: CARV6.2512 PO (08:02)
[2019-01-20] MEDS ORDERED: GABA300C10 PO (08:02)
[2019-01-20] MEDS ORDERED: DOCU-131 PO (08:02)
[2019-01-20] MEDS: FAMOTIDINE 20 MG TABLET PO SCH (08:11)
[2019-01-20] MEDS: FERROUS SULFATE 325 MG TABLET PO SCH (08:12)
[2019-01-20] MEDS: CLOPIDOGREL 75 MG TABLET PO SCH (08:12)
[2019-01-20] MEDS: AMIODARONE 200 MG TABLET PO SCH (08:12)
[2019-01-20] MEDS: GABAPENTIN 300 MG CAPSULE PO SCH (08:12)
[2019-01-20] MEDS: MUPIROCIN OINT 2%, 22GM NAS SCH (08:13)
[2019-01-20] MEDS: LISINOPRIL 5 MG TABLET PO SCH (08:13)
[2019-01-20] MEDS: SODIUM CHLORIDE FLUSH 10ML SYR IVF SCH (08:13)
[2019-01-20] MEDS: ALLOPURINOL 100 MG TABLET PO SCH (08:13)
[2019-01-20] MEDS: DOCUSATE 100 MG CAPSULE PO SCH (08:15)
[2019-01-20] MEDS: MUPIROCIN OINT 2%, 22GM TP SCH (08:16)
[2019-01-20] MEDS ORDERED: OXYC5TAB2 PO (09:47)
== END 2019-01-20 10:36 | disposition home or self-care (01) | DRG 233 ==
LOC: CACL 09:20 → 5SO 15:43 → CCU 01-15 07:02 → CSU 01-15 08:02 → 5SO 01-16 16:35 → DCLOUNGE 01-20 10:19
PROVIDERS: ADMIT Internal Medicine Cardiovascular Disease; ATTEND Internal Medicine Cardiovascular Disease
PROC: 4A023N7 Measurement of Cardiac Sampling and Pressure, Left Heart, Percutaneous Approach (ICD-10-PCS; principal; 2019-01-08)
PROC: B2111ZZ Fluoroscopy of Multiple Coronary Arteries using Low Osmolar Contrast (ICD-10-PCS; 2019-01-08)
PROC: B2131ZZ Fluoroscopy of Multiple Coronary Artery Bypass Grafts using Low Osmolar Contrast (ICD-10-PCS; 2019-01-08)
PROC: B2151ZZ Fluoroscopy of Left Heart using Low Osmolar Contrast (ICD-10-PCS; 2019-01-08)
PROC: 02100Z9 Bypass Coronary Artery, One Artery from Left Internal Mammary, Open Approach (ICD-10-PCS; 2019-01-15)
PROC: 021109W Bypass Coronary Artery, Two Arteries from Aorta with Autologous Venous Tissue, Open Approach (ICD-10-PCS; 2019-01-15)
PROC: 06BP4ZZ Excision of Right Saphenous Vein, Percutaneous Endoscopic Approach (ICD-10-PCS; 2019-01-15)
PROC: 5A1221Z Performance of Cardiac Output, Continuous (ICD-10-PCS; 2019-01-15)
PROC: 04HY32Z Insertion of Monitoring Device into Lower Artery, Percutaneous Approach (ICD-10-PCS; 2019-01-15)
DX: I25.110 Atherosclerotic heart disease of native coronary artery with unstable angina pectoris (principal); J96.01 Acute respiratory failure with hypoxia; N17.9 Acute kidney failure, unspecified; I50.42 Chronic combined systolic (congestive) and diastolic (congestive) heart failure; Z99.11 Dependence on respirator [ventilator] status; D50.9 Iron deficiency anemia, unspecified; D72.829 Elevated white blood cell count, unspecified; E66.9 Obesity, unspecified; Z68.30 Body mass index [BMI] 30.0-30.9, adult; E78.5 Hyperlipidemia, unspecified; G89.18 Other acute postprocedural pain; I11.0 Hypertensive heart disease with heart failure; I25.2 Old myocardial infarction; J43.9 Emphysema, unspecified; K21.9 Gastro-esophageal reflux disease without esophagitis; M10.9 Gout, unspecified; Z79.02 Long term (current) use of antithrombotics/antiplatelets; Z80.1 Family history of malignant neoplasm of trachea, bronchus and lung; Z82.49 Family history of ischemic heart disease and other diseases of the circulatory system; Z87.891 Personal history of nicotine dependence; Z95.5 Presence of coronary angioplasty implant and graft; I08.1 Rheumatic disorders of both mitral and tricuspid valves; I25.5 Ischemic cardiomyopathy
CPT/HCPCS: 0399T; 36415; 36600; 71045; 71046; 80048; 80053; 81003; 82040; 82272; 82330; 82728; 82800; 82803; 82810; 82947; 82962; 83036; 83540; 83550; 83735; 84132; 84295; 85014; 85018; 85025; 85049; 85347; 85520; 85610; 85730; 86850; 86900; 86923; 87081; 93005; 93306; 93312; 93321; 93325; 93458; 93880; 93970; 94002; 94150; 99156; 99157; C1769; C1894; G0378; J0171; J0583; J0697; J1170; J1644; J1650; J1815; J2250; J2405; J2704; J2720; J3010; J3370; J3475; J3480; P9045; P9047; C1751; C1760; J0282; J1940; J2270; J2370; J2440; J2930; J7050; J7060; Q0163; Q9967

== ENCOUNTER → 2019-05-21 | Outpatient (CLI) | payer MEDICARE, BC ==
[~2019-05-21] MED LIST: ALLO300T PO; AMIO200T42 PO; ASPI-515 PO; ATOR-2 PO; CARV6.2512 PO; CLOP75TA PO; DICL-249 PO; DOCU-131 PO; GABA300C10 PO; LISI5TAB7 PO; METO25TA35 PO; OXYC5TAB2 PO; PRAS10TA4 PO; RANI150T4 PO; TEST200V21 IM
== END | disposition home or self-care (01) ==
LOC: CFH 15:23
PROVIDERS: ATTEND Physician Assistant Medical
DX: I51.7 Cardiomegaly (principal); E11.9 Type 2 diabetes mellitus without complications; E78.5 Hyperlipidemia, unspecified; M10.9 Gout, unspecified; Z95.1 Presence of aortocoronary bypass graft; Z98.61 Coronary angioplasty status
CPT/HCPCS: 71046

== ENCOUNTER 2019-05-26 08:31 | Outpatient (CLI) | payer MEDICARE, BC | END 2019-05-26 23:59 | disposition home or self-care (01) | LOC: CVU 08:31 | PROVIDERS: ATTEND Physician Assistant Medical | DX: I08.8 Other rheumatic multiple valve diseases (principal); I42.9 Cardiomyopathy, unspecified; R07.9 Chest pain, unspecified; I25.2 Old myocardial infarction; I10 Essential (primary) hypertension; E78.5 Hyperlipidemia, unspecified; Z95.1 Presence of aortocoronary bypass graft; Z95.5 Presence of coronary angioplasty implant and graft | CPT/HCPCS: 93306 ==

== ENCOUNTER 2019-05-26 10:32 | Outpatient (CLI) | payer MEDICARE, BC ==
[2019-05-26 11:42] LABS: ANION GAP 6 mmol/L (5-15); CALCIUM 7.9 mg/dL (8.5-10.1); CHLORIDE 113 mmol/L (98-107); CREATININE 1.37 mg/dL (0.7-1.3)
== END 2019-05-26 23:59 | disposition home or self-care (01) ==
LOC: CFH 10:32
PROVIDERS: ATTEND Physician Assistant Medical
DX: E11.9 Type 2 diabetes mellitus without complications (principal); E78.5 Hyperlipidemia, unspecified; I10 Essential (primary) hypertension; I21.19 ST elevation (STEMI) myocardial infarction involving other coronary artery of inferior wall; I42.9 Cardiomyopathy, unspecified; J96.00 Acute respiratory failure, unspecified whether with hypoxia or hypercapnia; M10.9 Gout, unspecified
CPT/HCPCS: 36415; 80048

== ENCOUNTER → 2019-06-09 | Outpatient (CLI) | payer MEDICARE, BC | END | disposition home or self-care (01) | LOC: CFH 12:12 | PROVIDERS: ATTEND Internal Medicine Cardiovascular Disease | DX: M62.08 Separation of muscle (nontraumatic), other site (principal); R07.89 Other chest pain | CPT/HCPCS: 71250 ==

== ENCOUNTER → 2019-07-14 | Outpatient (CLI) | payer MEDICARE, BC | END | disposition home or self-care (01) | LOC: CFH 09:40 | PROVIDERS: ATTEND Nurse Practitioner Family | DX: R07.9 Chest pain, unspecified (principal) | CPT/HCPCS: 71046 ==

== ENCOUNTER 2019-10-25 08:39 | Inpatient (IN) | payer MEDICARE, BC ==
[~2019-10-25] VITALS: Ht 177.8 cm; Wt 98.3 kg
[2019-10-25] MEDS ORDERED: CHLORHEXIDINE 15 ML UDC MM PRN (09:00)
[2019-10-25] MEDS ORDERED: INSULIN LISPRO 100 UNITS/ML, PEN SQ-INSULIN SCH (09:00)
[2019-10-25] MEDS ORDERED: DEXTROSE 50%, 50ML SYRINGE IVPush PRN (09:00)
[2019-10-25] MEDS ORDERED: DEXTROSE 4 GM TAB.CHEW PO PRN (09:00)
[2019-10-25] MEDS ORDERED: SODIUM CHLORIDE FLUSH 10ML SYR IVF SCH (09:00)
[2019-10-25] MEDS ORDERED: GLUCAGON 1 MG IM PRN (09:00)
[2019-10-25] MEDS ORDERED: CHLORHEXIDINE 15 ML UDC ONE (09:07)
[2019-10-25] MEDS: SODIUM CHLORIDE FLUSH 10ML SYR IVF SCH ×2 (09:29→20:52)
[2019-10-25] MEDS ORDERED: PLEASE ENTER HEIGHT AND WEIGHT MC SCH (09:30)
[2019-10-25 09:46] LABS: INTERNATIONAL NORMALIZED RATIO 1.03 (0.93-1.1); PROTHROMBIN TIME 10.9 Seconds (9.6-11.5)
[2019-10-25 09:48] LABS: ALANINE AMINOTRANSFERASE 56 U/L (12-78); ALBUMIN 3.3 g/dL (3.4-5.0); ANION GAP 6 mmol/L (5-15); CHLORIDE 114 mmol/L (98-107); CREATININE 1.02 mg/dL (0.7-1.3)
[2019-10-25 09:49] LABS: MEAN CORPUSCULAR HEMOGLOBIN 25.8 pg (27.5-34.5); MEAN CORPUSCULAR HGB CONC 31.8 g/dL (33.2-36.2); MEAN CORPUSCULAR VOLUME 81.1 fL (81-97); MEAN PLATELET VOLUME 9.8 fL (7.4-10.4); PLATELET COUNT 228 x10^3/uL (130-400); RED BLOOD COUNT 5.66 x10^6/uL (4.38-5.82); RED CELL DISTRIBUTION WIDTH 22.9 % (9.4-14.8)
[2019-10-25 09:50] LABS: ALKALINE PHOSPHATASE 120 U/L (45-117); BILIRUBIN,TOTAL 0.4 mg/dL (0.2-1.0); TOTAL PROTEIN 6.6 g/dL (6.4-8.2)
[2019-10-25 09:59] LABS: BASOPHILS # (AUTO) 0.03 x10^3/uL (0-0.1); BASOPHILS % (AUTO) 1 % (0-1); EOSINOPHILS % (AUTO) 3 % (1-7); LYMPHOCYTES # (AUTO) 1.19 x10^3/uL (1-3.4); LYMPHOCYTES % (AUTO) 17 % (22-44); MD SCAN; MONOCYTES # (AUTO) 0.74 x10^3/uL (0.2-0.8); MONOCYTES % (AUTO) 11 % (2-9); NEUTROPHILS # (AUTO) 4.85 x10^3/uL (1.8-6.8); NEUTROPHILS % (AUTO) 69 % (42-75)
[2019-10-25 10:07] VITALS: BP_SYST 141; BP_SYST 147; BP_DIAS 86; BP_DIAS 91
[2019-10-25] MEDS ORDERED: EPHEDRINE 50 MG/ML, 1ML ONE (12:24)
[2019-10-25] MEDS ORDERED: ROCURONIUM 10MG/ML,5ML ONE (12:24)
[2019-10-25] MEDS ORDERED: PROPOFOL 10 MG/ML, 20ML ONE (12:24)
[2019-10-25] MEDS ORDERED: DEXAMETHASONE 4 MG/ML, 1ML ONE (12:24)
[2019-10-25] MEDS ORDERED: CEFAZOLIN 1,000 MG ONE (12:24)
[2019-10-25] MEDS ORDERED: ONDANSETRON 2MG/ML, 2ML ONE (12:24)
[2019-10-25] MEDS ORDERED: SUCCINYLCHOLINE 20 MG/ML, 10ML ONE (12:24)
[2019-10-25] MEDS ORDERED: FENTANYL PF 250 MCG/5ML ONE (12:25)
[2019-10-25] MEDS ORDERED: BUPIVACAINE/PF-EPI 0.5% 1:200K INFIL ONE ×2 (12:55→13:00)
[2019-10-25] MEDS ORDERED: BUPIVACAINE/EPI 0.5% 1:200K INFIL ONE (12:55)
[2019-10-25] MEDS ORDERED: HYDROcodone/APAP 5/325 TABLET PO PRN (13:30)
[2019-10-25] MEDS ORDERED: ACETAMINOPHEN 500 MG TABLET PO PRN (13:30)
[2019-10-25] MEDS ORDERED: DIPHENHYDRAMINE 50 MG/ML, 1ML IVPush PRN (14:00)
[2019-10-25] MEDS ORDERED: HYDROmorphone 1 MG/ML, 1ML INJ IVPush PRN (14:00)
[2019-10-25] MEDS ORDERED: MIDAZOLAM 1 MG/ML, 2ML IV PRN (14:00)
[2019-10-25] MEDS ORDERED: ALBUTEROL SULFATE 2.5 MG/3 ML NPPB PRN (14:00)
[2019-10-25] MEDS ORDERED: LABETALOL 5MG/ML, 20ML IV PRN (14:00)
[2019-10-25] MEDS ORDERED: OXYcodone 5 MG/5 ML ORAL.SOL UDC PO PRN (14:00)
[2019-10-25] MEDS ORDERED: PROMETHAZINE 25 MG/ML, 1ML IVPush PRN (14:00)
[2019-10-25] MEDS ORDERED: ONDANSETRON 2MG/ML, 2ML IVPush PRN (14:00)
[2019-10-25] MEDS ORDERED: ACETAMINOPHEN 325 MG TABLET PO PRN (14:00)
[2019-10-25] MEDS ORDERED: EPHEDRINE 50 MG/ML, 1ML IVPush PRN (14:00)
[2019-10-25] MEDS ORDERED: MEPERIDINE/PF 25MG/0.5ML IVPush PRN (14:00)
[2019-10-25] MEDS ORDERED: DIAZEPAM 5 MG/ML, 2ML IVPush PRN (14:00)
[2019-10-25] MEDS ORDERED: FENTANYL PF 100 MCG/2ML IV PRN (14:00)
[2019-10-25] MEDS ORDERED: hydrALAzine 20 MG/ML, 1ML IV PRN (14:00)
[2019-10-25] MEDS ORDERED: PROMETHAZINE 12.5 MG SUPP PR PRN (14:00)
[2019-10-25 15:35] VITALS: BP 149/81
[2019-10-25] MEDS: CARVEDILOL 6.25 MG TABLET PO SCH (18:06)
[2019-10-25 19:59] VITALS: BP 155/97
[2019-10-25] MEDS: DOCUSATE 100 MG CAPSULE PO SCH (20:51)
[2019-10-25] MEDS: AMIODARONE 200 MG TABLET PO SCH (20:53)
[2019-10-25] MEDS: GABAPENTIN 300 MG CAPSULE PO SCH (20:54)
[2019-10-25] MEDS ORDERED: ATORVASTATIN 80 MG TABLET PO SCH (21:00)
[2019-10-26 00:50] VITALS: BP 135/72
[2019-10-26] MEDS: CARVEDILOL 6.25 MG TABLET PO SCH (06:10)
[2019-10-26 06:36] VITALS: BP 135/88
[2019-10-26] MEDS ORDERED: CEFUROXIME 1.5 GM in SODIUM CHLORIDE 0.9% 50 ML IVPB PRN (07:30)
[2019-10-26] MEDS ORDERED: VANCOMYCIN 1,200 MG in SODIUM CHLORIDE 0.9% 250 ML IVPB PRN (07:30)
[2019-10-26] MEDS: AMIODARONE 200 MG TABLET PO SCH (08:55)
[2019-10-26] MEDS: DOCUSATE 100 MG CAPSULE PO SCH (08:55)
[2019-10-26] MEDS: GABAPENTIN 300 MG CAPSULE PO SCH (08:56)
[2019-10-26] MEDS: SODIUM CHLORIDE FLUSH 10ML SYR IVF SCH (08:57)
[2019-10-26] MEDS ORDERED: ASPIRIN 81 MG TABLET EC PO SCH (09:00)
[2019-10-26] MEDS ORDERED: RANITIDINE HCL 150 MG PO SCH (09:00)
[2019-10-26] MEDS ORDERED: DICLOFENAC SODIUM 75 MG TABLET.DR PO SCH (09:00)
[2019-10-26] MEDS ORDERED: LISINOPRIL 5 MG TABLET PO SCH (09:00)
[2019-10-26] MEDS ORDERED: ALLOPURINOL 100 MG TABLET PO SCH (09:00)
== END 2019-10-26 10:17 | disposition home or self-care (01) | DRG 909 ==
LOC: OUT 08:39 → 5SO 08:52 → OUT 22:54 → 5SO 22:56 → DCLOUNGE 10-26 10:11
PROVIDERS: ADMIT Thoracic Surgery (Cardiothoracic Vascular Surgery); ATTEND Thoracic Surgery (Cardiothoracic Vascular Surgery)
PROC: 0PC00ZZ Extirpation of Matter from Sternum, Open Approach (ICD-10-PCS; principal; 2019-10-25 10:30)
DX: T81.89XA Other complications of procedures, not elsewhere classified, initial encounter (principal); G89.18 Other acute postprocedural pain; E66.9 Obesity, unspecified; E78.5 Hyperlipidemia, unspecified; I10 Essential (primary) hypertension; I25.10 Atherosclerotic heart disease of native coronary artery without angina pectoris; Z95.1 Presence of aortocoronary bypass graft; Z68.31 Body mass index [BMI] 31.0-31.9, adult; Z20.828 Contact with and (suspected) exposure to other viral communicable diseases; Y83.1 Surgical operation with implant of artificial internal device as the cause of abnormal reaction of the patient, or of later complication, without mention of misadventure at the time of the procedure
CPT/HCPCS: 36415; 71045; 80053; 82962; 85025; 85610; 85730; 86850; 86900; 86923; 93005; G0378; J0690; J1100; J2405; J2704; J3010; J0330; J1815; U0001-CS